=== PATIENT | male | born 1945 | race Two or more races ===

== ENCOUNTER 2020-11-12 06:13 | Day surgery (SDC) | payer MEDICARE, OTHER ==
[~2020-11-12] VITALS: Ht 182.9 cm; Wt 107.5 kg
[2020-11-12] VITALS (8 sets, daily range): BP systolic 129–138; BP diastolic 75–84
[2020-11-12] MEDS: Tobradex Opth Susp 2.5ml LEFT EYE SCH ×3 (06:39→06:55)
[2020-11-12] MEDS: Akten 3.5% 1ml Btl LEFT EYE SCH ×3 (06:39→06:56)
[2020-11-12] MEDS: Diclofenac Sod 0.1% Op Soln LEFT EYE SCH ×3 (06:40→06:56)
[2020-11-12] MEDS: Tropicamide 1% Opth 15ml Soln LEFT EYE SCH ×3 (06:40→06:55)
[2020-11-12] MEDS: Phenylephrine 10% Opth Soln 5ml LEFT EYE SCH ×3 (06:40→06:55)
[2020-11-12] MEDS: Tetracaine 0.5% Opth 4ml Soln LEFT EYE SCH ×3 (06:41→06:55)
[2020-11-12] MEDS ORDERED: Lidocaine 4% Amp 5ml ONE (07:20)
[2020-11-12] MEDS ORDERED: Lidocaine 1% MPF 10mg/ml 5ml ONE ×2 (07:20→08:19)
[2020-11-12] MEDS ORDERED: EPINEPHrine 1mg/1ml Amp ONE ×2 (07:20→09:02)
[2020-11-12] MEDS ORDERED: Fluorescein Strips ONE (07:20)
[2020-11-12] MEDS ORDERED: URSODIOL300 MG ORAL (07:21)
[2020-11-12] MEDS ORDERED: Carbachol 0.01% Op Soln 1.5ml vial ONE (07:21)
[2020-11-12] MEDS ORDERED: AMLODIPINE BESY10 MG ORAL (07:21)
[2020-11-12] MEDS ORDERED: ASPIRIN81 MG ORAL (07:21)
[2020-11-12] MEDS ORDERED: acetaZOLAMIDE 500mg Inj ONE (07:21)
[2020-11-12] MEDS ORDERED: HYDRALAZINE HCL10 MG ORAL (07:21)
[2020-11-12] MEDS ORDERED: VITAMIN D3 COM1 EACH PO (07:21)
[2020-11-12] MEDS ORDERED: COSOPT EYE DROP10 M1 OP (07:21)
[2020-11-12] MEDS ORDERED: FAMOTIDINE20 MG ORAL (07:21)
[2020-11-12] MEDS ORDERED: COREG12.5 MG ORAL (07:21)
[2020-11-12] MEDS ORDERED: BSS 500ml btl ONE (07:21)
[2020-11-12] MEDS ORDERED: timoloL maleate 0.5% Op Soln 2.5ml ONE (07:21)
[2020-11-12] MEDS ORDERED: MYFORTIC180 MG PO (07:21)
[2020-11-12] MEDS ORDERED: MULTIVITAMINS1 EAC2 ORAL (07:21)
[2020-11-12] MEDS ORDERED: MAGNESIUM OXID400 M1 ORAL (07:21)
[2020-11-12] MEDS ORDERED: LIPITOR20 MG ORAL (07:21)
[2020-11-12] MEDS ORDERED: prednisoLONE acetate 1% Opth Susp 1ml ONE (07:21)
[2020-11-12] MEDS ORDERED: FLOMAX0.4 MG ORAL (07:21)
[2020-11-12] MEDS ORDERED: METFORMIN HCL500 M1 ORAL (07:21)
[2020-11-12] MEDS ORDERED: LATANOPROST 0.7.5 ML OP (07:21)
[2020-11-12] MEDS ORDERED: COLACE100 MG ORAL (07:21)
[2020-11-12] MEDS ORDERED: Maxitrol Opth Oint 3.5gm ONE (07:21)
[2020-11-12] MEDS ORDERED: Acetylcholine Injection (OR) ONE (07:22)
[2020-11-12] MEDS ORDERED: Bupivacaine 0.75% 30ml vial INJ ONE (07:22)
[2020-11-12] MEDS ORDERED: BSS 15ml BTL ONE ×2 (07:22→09:02)
[2020-11-12] MEDS ORDERED: Sodium Hyaluronate 10 mg/ml 0.85ml ONE (07:22)
[2020-11-12] MEDS ORDERED: Povidone-Iodine 5% opth solution ONE (07:22)
[2020-11-12] MEDS ORDERED: Tetracaine 0.5% Opth 4ml Soln ONE (07:22)
[2020-11-12] MEDS ORDERED: fentaNYL 100 mcg/2 mL IV ONE (07:32)
[2020-11-12] MEDS ORDERED: Midazolam 2mg/2ml Inj ONE (07:42)
--- NOTE | 2020-11-12 07:48 | Anethesia Preoperative Eval ---
Anesthesia Pre-op PMH/ROS General Date of Evaluation: Nov 12, 2020 Time of Evaluation: 07:42 Anesthesiologist: Stephanie ASA Score: ASA 3 Mallampati Score Class I : Soft palate, uvula, fauces, pillars visible Class II: Soft palate, uvula, fauces visible Class III: Soft palate, base of uvula visible Class IV: Only hard plate visible Mallampati Classification: Class III Surgeon: Hakan Diagnosis: L eye cataract Surgical Procedure: Cataract exraction Anesthesia History: none Social History: smoking - h/o, drug use - posible IVDA Family History: no anesthesia problems Allergies: Coded Allergies: No Known Allergies (Unverified , 11/12/20) Medications: see eMAR Patient NPO?: Yes Past Medical History Cardiovascular: Reports: HTN, CAD - coronary stent in, [place] - h/o; Denies: valve dz, arrhythmia, other Pulmonary: Reports: PHILIP; Denies: asthma, COPD, other Gastrointestinal/Genitourinary: Reports: GERD, other - h/o hep C s/p liver transplant; Denies: CRI, ESRD Neurologic/Psychiatric: Reports: CVA, depression/anxiety; Denies: dementia, TIA, other Endocrine: Reports: DM - not well controled; Denies: hypothyroidism, steroids, other HEENT: Reports: cataract (L), cataract (R); Denies: glaucoma, LA JOLLA (L), LA JOLLA (R), other Hematology/Immune: Reports: anemia - mild; Denies: DVT, bleeding disorder, other Musculoskeletal/Integumentary: Reports: DJD - s/p bylateral knees replacement; Denies: OA, RA, DDD, edema, other Other: obesity PMH Narrative: as above PSxH Narrative: Liver transplant, bilateral knees arthroplasty coronary angiogram with stent Anesthesia Pre-op Phys. Exam Physician Exam Last Vital Signs Date Time Temp Pulse Resp B/P (MAP) Pulse Ox O2 Delivery O2 Flow Rate FiO2 11/12/20 06:51 Room Air 11/12/20 06:50 97.2 66 20 138/75 100 Constitutional: NAD Neurologic: CN 2-12 intact Cardiovascular: RRR, no M/R/G Respiratory: CTA Gastrointestinal: other - obesity Airway Exam Mallampati Score: Class III MO: limited Neck: short ROM: limited Teeth: missing Dentures: no upper, no lower Anesthesia Pre-op A/P Labs see chart Studies Pre-op Studies: EKG - S Risk Assessment & Plan Assessment: ASA 3 Plan: MAC Status Change Before Surgery: No Pre-Antibiotics Drug: none Jcarlos Brown MD Nov 12, 2020 07:48
[2020-11-12] MEDS ORDERED: NS Irrig 1000ml ONE (08:00)
[2020-11-12] MEDS ORDERED: LR 1000ml 1,000 ML IVLG SCH (08:00)
[2020-11-12] MEDS ORDERED: fentaNYL 100 mcg/2 mL IV PRN (08:00)
[2020-11-12] MEDS ORDERED: Sterile Water Irrig 1000ml IRRIG ONE (08:00)
[2020-11-12] MEDS ORDERED: LR 1000ml ONE (08:00)
--- NOTE | 2020-11-12 09:00 | Discharge Instructions ---
Discharge Instructions Discharge Instructions Follow Up Orders Continue preop eye drops Wear shield at all times except to place eye drops Followup tomorrow in Dr Mcclendon's office For Congestive Heart Failure Reminder Report to your physician any weight gain of 5 pounds or more in one week. Beka Mcclendon MD Nov 12, 2020 09:00
--- NOTE | 2020-11-12 09:03 | Immediate Post-Op Evaluation ---
Immediate Post-Op Evalulation Immediate Post-Op Evalulation Procedure: L eye cataract extraction with IOL Date of Evaluation: Nov 12, 2020 Time of Evaluation: 09:02 IV Fluids: 400 Blood Products: none Estimated Blood Loss: none Urinary Output: none Blood Pressure Systolic: 131 Blood Pressure Diastolic: 76 Pulse Rate: 64 Respiratory Rate: 18 O2 Sat by Pulse Oximetry: 98 Temperature (Fahrenheit): 97.6 Pain Score (1-10): 2 Nausea: No Vomiting: No Complications none Patient Status: awake, patent, none Hydration Status: adequate Jcarlos Brown MD Nov 12, 2020 09:03
--- NOTE | 2020-11-12 09:03 | Brief Operative Note ---
Immediate Post Operative Note Operative Note Pre-op Diagnosis: Cataract, combined, left eye Procedure: Phaco PC IOL OS Post-op Diagnosis: same as pre-op Surgeon: Berta Mcclendon MD Anesthesiologist: Dr Brown Anesthesia: local, MAC Specimen: none Complications: none Fluids: see chart Implant(s) used?: Yes - PCBOO 23.0 Beka Mcclendon MD Nov 12, 2020 09:03
--- NOTE | 2020-11-12 09:22 | Pre-Procedure Note/Attestation ---
Pre-Procedure Note/Attestation Complete Prior to Procedure Planned Procedure: left Procedure Narrative: Removal of cataract and placement of intraocular lens, left eye Indications for Procedure Pre-Operative Diagnosis: Cataract, combined, left eye Attestation I attest that I discussed the nature of the procedure; its benefits; risks and complications; and alternatives (and the risks and benefits of such alternatives), prior to the procedure, with the patient (or the patient's legal hvac sales representative). I attest that, if there was a reasonable possibility of needing a blood transfusion, the patient (or the patient's legal hvac sales representative) was given the [facility] standardized written summary, pursuant to the Gavino Franny Blood Safety Act ([place] Health and Safety Code # 1645, as amended). I attest that I re-evaluated the patient just prior to the surgery and that there has been no change in the patient's H&P, except as documented below: Beka Mcclendon MD Nov 12, 2020 09:22
--- NOTE | 2020-11-12 09:56 | 48 Hour Post Anesthesia Eval ---
Post Anesthesia Evaluation Procedure: L eye cataract extraction with IOL Date of Evaluation: Nov 12, 2020 Time of Evaluation: 09:55 Blood Pressure Systolic: 129 0: 84 Pulse Rate: 68 Respiratory Rate: 18 Temperature (Fahrenheit): 97.6 O2 Sat by Pulse Oximetry: 98 Airway: patent Nausea: No Vomiting: No Pain Intensity: 1 Hydration Status: adequate Cardiopulmonary Status: stable Mental Status/LOC: patient returned to baseline Follow-up Care/Observations: n/a Post-Anesthesia Complications: none Follow-up care needed: ready to discharge Jcarlos Brown MD Nov 12, 2020 09:56
--- NOTE | 2020-11-13 16:59 | Operative Note - Dictated ---
DATE OF OPERATION: 11/12/2020 SURGEON: Beka Mcclendon MD. K 12 PRINCIPAL SURGEON: None. ANESTHESIOLOGIST: Jcarlos Brown MD. ANESTHESIA: Local/standby/monitored anesthesia care. PREOPERATIVE DIAGNOSIS: Cataract, combined, left eye. POSTOPERATIVE DIAGNOSIS: Cataract, combined, left eye. PROCEDURE: 1. Phacoemulsification of cataract, left eye. 2. Placement of posterior chamber intraocular lens, left eye (model Getachew and Getachew, PCB00, power 23.0). SPECIMENS: None. COMPLICATIONS: None. INDICATIONS FOR SURGERY: The patient has had the painless progressive decrease in the visual acuity in the left eye secondary to cataract. The patient understands the risks of surgery including infection, bleeding, need for further surgery, loss of vision, no improvement in vision, loss of the eye, loss of life, glaucoma, retinal detachment, and understands these risks and elects to proceed with surgery. FINDINGS: The patient had a +2 to 3 nuclear sclerotic cataract as well as a +1 cortical cataract. OPERATIVE NOTE: After informed consent was obtained, the patient was brought into the operating room and placed in supine position. Cardiac and respiratory monitors were attached. A time-out was performed and all criteria were met, and everyone in the room agreed. The left eye was draped and prepped in a sterile manner for ocular surgery. A lid speculum was placed in the eye. A 1% lidocaine preservative-free was injected at the approximate 3 o'clock limbus. A conjunctiva peritomy from approximately 2:30 to 3:30 was made and dissected posteriorly. Hemostasis was maintained with bipolar cautery. A 2.6 mm limbal incision was made centered at approximately 3 o'clock and dissected anteriorly. A paracentesis was made approximately at 6 o'clock and Shugarcaine was injected into the anterior chamber followed by Healon. The anterior chamber was then entered using a 2.8 mm keratome. An anterior capsulorrhexis was then performed. Hydrodissection and hydrodelineation of the lens was then performed. The lens was then phacoemulsified using divide and conquer four-quadrant technique. Residual cortical material was then aspirated. Healon was injected into the anterior chamber and capsular bag. The lens was taken from its packaging and the tip of the cartridge was placed through the limbal incision. The lens was injected into the capsular bag and centered nicely with a Sinskey hook. Healon was aspirated from the anterior chamber and capsular bag. One 10-0 nylon interrupted suture was then placed through the limbal incision after the wound was also hydrated and closed. The paracentesis wound was also hydrated and closed. The conjunctiva was then closed with forceps cautery after all wounds were checked and found to be watertight. The lid speculum and drapes were removed from the eye and drops of Pred Forte, moxifloxacin, and then Maxitrol ointment was applied to the eye followed by a shield. The patient tolerated the procedure well and left the operating room awake, alert, and in stable condition. Beka Mcclendon M.D. DR: PRISCILLA JOB#: [id number] CC:
== END 2020-11-12 09:50 | disposition home or self-care (01) ==
LOC: SUR 06:13
DX: H25.12 Age-related nuclear cataract, left eye (principal); H25.012 Cortical age-related cataract, left eye; I11.9 Hypertensive heart disease without heart failure; I25.10 Atherosclerotic heart disease of native coronary artery without angina pectoris; I25.2 Old myocardial infarction; G47.33 Obstructive sleep apnea (adult) (pediatric); F32.9 Major depressive disorder, single episode, unspecified; F41.9 Anxiety disorder, unspecified; Z86.19 Personal history of other infectious and parasitic diseases; Z94.4 Liver transplant status; E11.9 Type 2 diabetes mellitus without complications; Z86.73 Personal history of transient ischemic attack (TIA), and cerebral infarction without residual deficits; Z96.653 Presence of artificial knee joint, bilateral; D64.9 Anemia, unspecified; E66.9 Obesity, unspecified; Z68.32 Body mass index [BMI] 32.0-32.9, adult
CPT/HCPCS: 66984; 94003; J0171; J1100; J2250; J2704; J3010; J7120; U0004; V2632; 94150